=== PATIENT | female | born 1945 | race Caucasian/White ===

== ENCOUNTER → 2016-09-25 | Outpatient (CLI) | payer OTHER ==
[~2016-09-25] MED LIST: ACETAMINOPHEN PO; ACETAMINOPHEN325 MG PO; ACTOS PO; ADVAIR 250-501 EAC1 IH; ALBUTEROL17 GM INH; ALPRAZOLAM PO; ALPRAZOLAM0.25 M1 PO; ALPRAZOLAM0.25 MG PO; AMLODIPINE BESYL5 MG PO; ASPIR-TRIN325 MG PO; ASPIRIN ENTERI325 M1 PO; ASPIRIN PO; ATORVASTATIN CA80 MG PO; B COMPLEX1 TAB PO; BIO FLEX PO; CARDIZEM60 M1 PO; CENTRUM SILVER PO; CENTRUM SILVER1 EAC2 PO; CLOPIDOGREL75 MG PO; COLACE PO; COMBIVENT MININEB INH; CORDARONE200 M1 PO; COZAAR25 MG PO; DILTIAZEM HCL60 MG PO; DIOVAN PO; EFFEXOR PO; EFFEXOR XR75 MG PO; FLUTICASONE INH; FOLIC ACID1 MG PO; GLIPIZIDE10 MG PO; GLUCOSAMINE &1 EACH PO; GLUCOSAMINE 1,51 CA1 PO; GLYBURIDE PO; GLYNASE PO; GUAIFENESIN LA600 M1 PO; HYOSCYAMINE 0.125 MG; IMDUR PO; IMDUR-ER60 M1 PO; IMDUR-ER60 MG DOB; LASIX PO; LASIX20 MG PO; LEVAQUIN PO; LEVAQUIN250 MG PO; LEVAQUIN750 MG PO; LEVOTHYROXINE175 MCG PO; LEVOXYL175 MC1 PO; LIPITOR PO; LOMOTIL TABLET1 TAB PO; LORTAB 5/500 TA1 TA1 PO; LOSARTAN POTASS25 MG PO; METFORMIN PO; METOPROLOL SUC100 MG PO; METOPROLOL TAR100 MG PO; MONTELUKAST SOD10 MG PO; MULTI-VITAMIN1 TAB PO; NATURAL VITA400 UNI2 PO; NORCO1 TAB 10/3 DOB; NORVASC PO; NYSTATIN5 ML PO; OXYCODONE HCL5 MG PO; PHENERGAN25 M1 DOB; PLAVIX PO; PREDNISONE5 MG PO; PROTONIX20 MG PO; RANEXA500 MG PO; SALMETEROL INH; SIMVASTATIN80 MG PO; SINGULAIR PO; SV GLUCOSAMINE PO; SYMBICORT INH; SYNTHROID PO; SYNTHROID175 MCG PO; TOPROL XL PO; TOVIAZ4 MG PO; TRADJENTA5 MG PO; TRENTAL400 MG PO; TYLOX 5/500 CAP1 CAP PO; VENLAFAXINE HCL75 M2 PO; VITAMIN B 12 OTC; VITAMIN B SHOT; VITAMIN B-1000 MCG/1 IJ; VITAMIN B12 IM; VITAMIN C500 M1 PO; VITAMIN D400 UNI1 PO; VITAMIN D400 UNI2 PO; VITAMIN E; VITAMIN E400 UNI2 PO; ZOCOR PO; [UNRECOGNIZED DRUG - OTHER]
--- NOTE | ~2016-09-25 | CT2 ---
[facility] A Service of [facility] RADIOLOGY TEXT RESULTS PATIENT: ADRIEL WIGGINS [facility] : 43 UNIT #: [id number] AGE: [address]: Donavon Aly MD SEX: F ORDER DR: [id number] [facility] [address] [place], [place] [address] [id number] O MR#: [id number] Acc #: [id number] NAME: ADRIEL WIGGINS : 1945 SEX: F STUDY DATE/TIME: 09/25/2016 11:39 UNIT: [facility] ROOM: STUDY DESCRIPTION: CT Abd and Pelv W Cont Attending Physician: Donavon Aly M.D. Referring Physician: Donavon Aly M.D. Ordering Physician: Donavon Aly M.D. Primary Care Physician: Spencer Lobo M.D. MEDICAL IMAGING REPORT This report is preliminary unless electronic signature is present EXAM CT abdomen and pelvis HISTORY Lung cancer, renal cell carcinoma. Left lower lobe pulmonary malignancy. TECHNIQUE CT abdomen and pelvis utilizing 100 mL Isovue-370 IV contrast. Coronal and sagittal reconstructions were obtained. The CT exam was performed with one or more of the following radiation dose reduction techniques: automatic exposure control, adjustment of mA and/or kV according to patient size, and iterative reconstruction. COMPARISON CT abdomen and pelvis dated 06/12/2016. FINDINGS Abdomen: Please refer to the separate dictated report for details on the chest. There are post partial nephrectomy changes to the left kidney. No new or suspicious renal finding. There are a few small benign renal cysts. No hydronephrosis. The remaining solid abdominal organs are unchanged. Gallbladder is surgically absent. There are changes of partial right hemicolectomy, There are some left-sided colonic diverticula. No diverticulitis. The abdominal aorta is normal in caliber, however there is moderate atherosclerotic disease. [facility] A Service [facility] RADIOLOGY TEXT RESULTS PATIENT: ADRIEL WIGGINS [facility] : 43 UNIT #: [id number] AGE: [address]: Donavon Aly MD SEX: F ORDER DR: Pelvis: Uterus and ovaries are presumed surgically absent. Descent of the pelvic floor below the level of the pubococcygeal line indicative of pelvic floor insufficiency. There is small posterior cystocele. No enlarged pelvic or inguinal lymph nodes. No acute osseous abnormalities. IMPRESSION 1. No evidence of recurrent or metastatic disease in the abdomen and pelvis. Dictated by... Cornell Pollock M.D. THIS IS AN ELECTRONICALLY VERIFIED REPORT Cornell Pollock M.D. at 09/26/2016 11:16 AM MADAI/vito TD: 09/26/2016 07:04 JOB #: [id number] MEDICAL IMAGING REPORT Page 1 of 1 COPY
--- NOTE | ~2016-09-25 | CT55 ---
[facility] A Service of [facility] RADIOLOGY TEXT RESULTS PATIENT: ADRIEL WIGGINS LOCATION: [facility] : 41 UNIT #: [id number] AGE: [address]: Donavon Aly MD SEX: F ORDER DR: [id number] [facility] [address] [place], [place] [address] [id number] O MR#: [id number] Acc #: [id number] NAME: ADRIEL WIGGINS : 1945 SEX: F STUDY DATE/TIME: 09/25/2016 11:39 UNIT: [facility] ROOM: STUDY DESCRIPTION: CT Chest W Con Attending Physician: Donavon Aly M.D. Referring Physician: Donavon Aly M.D. Ordering Physician: Donavon Aly M.D. Primary Care Physician: Spencer Lobo M.D. MEDICAL IMAGING REPORT This report is preliminary unless electronic signature is present EXAM CT chest INDICATION Lung cancer. Malignant neoplasm of the left lower lobe. Restaging. Observation for metastatic disease. TECHNIQUE CT of the chest utilizing 100 mL Isovue-370 IV contrast. Coronal and sagittal reconstructions were obtained. This CT exam was performed with one or more of the following radiation dose reduction techniques: automatic exposure control, adjustment of mA and/or kV according to patient size, and iterative reconstruction. COMPARISON CT chest dated 06/12/2016. FINDINGS The patient is status post left lower lobectomy. There are a few small nodular densities in the left upper lobe measuring less than 3 mm. These are unchanged. Patient does have evidence of prior granulomatous exposure. There is some left infrahilar prominence and bronchiectasis which is unchanged from the prior exam. Small amount of pleural fluid loculated gas in the medial lower left hemithorax is unchanged. No pathologically-enlarged mediastinal or hilar lymph nodes. Several partial calcified nodes are again noted. No pericardial effusion. Please refer to the separately dictated report for details on the abdomen. No new osseous abnormalities. IMPRESSION [facility] A Service [facility] RADIOLOGY TEXT RESULTS PATIENT: ADRIEL WIGGINS LOCATION: [facility] : 41 UNIT #: [id number] AGE: [address]: Donavon Aly MD SEX: F ORDER DR: 1. No evidence of recurrent or metastatic disease in a patient status post left lower lobectomy. Dictated by... Cornell Pollock M.D. THIS IS AN ELECTRONICALLY VERIFIED REPORT Cornell Pollock M.D. at 09/26/2016 11:16 AM MADAI/parris TD: 09/26/2016 09:47 JOB #: [id number] MEDICAL IMAGING REPORT Page 1 of 1 COPY
[2016-09-25 15:21] LABS: POC - CREATININE 0.91 mg/dL (0.44-1.03); POC - GFR >60.0 mL/min (>60)
== END | disposition home or self-care (01) ==
LOC: CCAT 10:46
PROVIDERS: Internal Medicine Hematology
DX: Z08 Encounter for follow-up examination after completed treatment for malignant neoplasm (principal); Z85.118 Personal history of other malignant neoplasm of bronchus and lung; Z90.2 Acquired absence of lung [part of]
CPT/HCPCS: 71260; 74177; 82565; Q9967